=== PATIENT | female | born 1955 | race Caucasian/White ===

== ENCOUNTER → 2021-04-15 | Outpatient (CLI) | payer MEDICARE, BC ==
[2021-04-15 10:22] LABS: BASO # 0.05 K/mm3 (0.02-0.10); EOS # 0.04 K/mm3 (0.04-0.40); EOS % 0.4 % (1.0-5.0); HEMATOCRIT 45.1 % (37.0-47.0); HEMOGLOBIN 14.8 g/dL (12.5-16.0); LYMPH# 2.08 K/mm3 (1.50-4.00); MEAN CELL VOLUME 96 fl (78-100); MEAN CORPUSCULAR HEMOGLOBIN 32 pg (27-31); MEAN CORPUSCULAR HGB CONC 33 g/dL (33-37); MEAN PLATELET VOLUME 9.8 fl (7.4-10.4); MONO # 0.82 K/mm3 (0.20-0.80); NEU # 6.13 K/mm3 (1.40-6.50); PLATELET COUNT 305 K/mm3 (130-400); RED BLOOD COUNT 4.69 M/mm3 (4.10-5.30); RED CELL DISTRIBUTION WIDTH 13.6 % (11.5-14.5); WHITE BLOOD COUNT 9.1 K/mm3 (4.8-10.8)
[2021-04-15 10:33] LABS: ALBUMIN 4.4 g/dL (3.4-4.8); POTASSIUM 4.1 mmol/L (3.5-5.1)
[2021-04-15 10:34] LABS: CALCIUM 9.9 mg/dL (8.3-10.5)
[2021-04-15 10:35] LABS: TOTAL PROTEIN 7.5 g/dL (6.2-8.1)
[2021-04-15 10:37] LABS: TOTAL BILIRUBIN 0.6 mg/dL (0.2-1.2)
[2021-04-15 11:04] LABS: URINE APPEARANCE CLEAR; URINE BILIRUBIN NEGATIVE (NEGATIVE); URINE BLOOD TRACE (NEGATIVE); URINE COLOR YELLOW; URINE GLUCOSE NEGATIVE (NEGATIVE); URINE KETONE NEGATIVE (NEGATIVE); URINE LEUKOCYTE ESTERASE TRACE (NEGATIVE); URINE NITRATE NEGATIVE (NEGATIVE); URINE PROTEIN(semi-quant) NEGATIVE (NEGATIVE); URINE UROBILINOGEN NORMAL (NORMAL); URINE WBC 0-1 /hpf (0-3)
== END ==
LOC: LAB 10:05 → EDSEX 10:05
PROVIDERS: Nurse Practitioner Primary Care
DX: K37 Unspecified appendicitis (principal)
CPT/HCPCS: Q9967

== ENCOUNTER → 2023-01-02 | Outpatient (CLI) | payer MEDICARE, BC | LOC: RAD 12:52 → VAS 12:52 | DX: M79.605 Pain in left leg (principal) ==

== ENCOUNTER → 2024-01-03 | Outpatient (CLI) | payer MEDICARE, BC | LOC: RAD 07:44 | DX: R10.31 Right lower quadrant pain (principal); Z90.89 Acquired absence of other organs ==